=== PATIENT | male | born 1950 | race Caucasian/White ===

== ENCOUNTER 2019-06-13 13:49 | Outpatient (CLI) | payer MEDICARE ==
--- NOTE | 2019-06-13 15:01 | CT ---
CT neck soft tissues with and without contrast: DATE: 06/13/2019 HISTORY: 69-year-old male with ICD-10: "K 11.20, sialadenitis" TECHNIQUE: Other than a parathyroid protocols, all CTs of the neck should be performed with contrast only. In this particular case, insurance has improved the study only for with and without contrast as order ed. FINDINGS: Metallic right intraorbital foreign body abutting the posterior superior aspect of the sclera of the right globe and the superior edge of the right optic nerve. Metallic plates and screws in multiple locations plus multiple small screws without plates, fixating old comminuted, displaced fractures of the face, including nasal bones, orbital dietrich and rims, anterior dietrich of maxillary sinuses, right mandibular body, and right mandibular ramus. Malocclusion and malorientation of all upper and lower t eeth. 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 Fatty reconstruction flap occupying location of hard palate. Right paramedian nasal soft tissue density mass measuring 1.5 x 2 x 1 cm, wh ich was present on prior CT of the face of 12/02/2002, but has grown since that time. Exact etiology uncertain. Multiple tiny punctate metallic foreign bodies in the soft tissues inferior to the superficial lobe o f the right parotid gland. At the far anterior edge of the superficial lobe of the right parotid gland, there is a punctate approximately 2 mm calcification, new since 2002. No fat stranding associa mariah with either the left or right parotid glands. No ductal ectasia identified involving Stensen's ducts or Warthin's ducts. 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 A normal right submandibular gland is not identified. Instead, there is a small piece of enhancing ti ssue in the expected location of the right submandibular gland which may represent an atrophic submandibular gland. It has increased enhancement suggestive of inflammation. There is surrounding fa t stranding which could represent either edema or scar tissue. It is contiguous with an elongated enhancing piece of tissue along the lateral aspect of the right sublingual space, which could represe nt inflamed right sublingual gland. A few mildly enlarged right submandibular (level 1B) is lymph nodes are noted. There is no cervical lymphadenopathy elsewhere. Atherosclerotic calcification of bilateral carotid bu lbs. No other abnormality of carotid, retropharyngeal, posterior cervical, or perivertebral, spaces. 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 IMPRESSION: 1. Inflammatory changes in the right submandibular space and right sublingual space could represent s ialadenitis. 2. The lesion in the right cement interspace may or may not represent an inflamed, very atrophic righ t submandibular gland. 3. Absence of left submandibular gland. 4. No evidence of parotitis. 5. Extensive surgical reconstruction of the face for previous severe trauma. 6. Right intraorbital metallic foreign body.
== END 2019-06-13 13:50 | disposition home or self-care (01) ==
LOC: BICCT 13:49
PROVIDERS: ATTEND Family Medicine
DX: K11.20 Sialoadenitis, unspecified (principal); Z98.890 Other specified postprocedural states
CPT/HCPCS: 70492; 82565

== ENCOUNTER 2020-09-16 14:20 | Outpatient (CLI) | payer MEDICARE | END 2020-09-16 14:21 | disposition home or self-care (01) | LOC: CTENTCT 14:20 | PROVIDERS: ATTEND Student in an Organized Health Care Education/Training Program | DX: J32.9 Chronic sinusitis, unspecified (principal) | CPT/HCPCS: 70486 ==

== ENCOUNTER 2025-04-01 12:18 | Outpatient (CLI) | payer MEDICARE | END 2025-04-01 12:19 | disposition home or self-care (01) | LOC: BICMAMMO 12:18 | PROVIDERS: ATTEND Internal Medicine Hematology & Oncology | DX: M81.0 Age-related osteoporosis without current pathological fracture (principal); C61 Malignant neoplasm of prostate | CPT/HCPCS: 77080 ==